=== PATIENT | male | born 1970 | race Caucasian/White ===

== ENCOUNTER 2018-09-10 11:41 | Inpatient (IN) | payer SELFPAY ==
[~2018-09-10] VITALS: Ht 170.2 cm; Wt 85.3 kg
--- NOTE | 2018-09-10 11:00 | NUR ---
RN NOTE: PATIENT ON FREQUENT NEURO CHECKS Q4HR AND ON CLOSE MONITORING WITH THE NURSES. NO CHANGE ON THE PATIENT'S NIHSS SCORE. Addendum: 09/11/18 at 0835 by RUFUS LANTIGUA RN ERROR ON TIME 09/10/18 @ 2300 NOT 1100.
--- NOTE | 2018-09-10 11:41 | NUR ---
PT BIBRA FROM HOME FOR NUMBNESS ON R SIDE; PT ON MONITOR, VSS, NAD NOTED, PENDING ER PROVIDER EVAL
--- NOTE | 2018-09-10 13:22 | NUR ---
CALLED FOR BED TELE
[2018-09-10] MEDS ORDERED: ASPIRIN 325 MG TABLET PO ONE (13:30)
[2018-09-10 13:37] LABS: BASOPHILS # (AUTO) 0.1 /CMM (0.0-0.2); BASOPHILS % (AUTO) 0.7 % (0.0-2.0); EOSINOPHILS % (AUTO) 1.1 % (0.0-6.0); HEMATOCRIT 45 % (39-51); HEMOGLOBIN 15.5 g/dL (13.5-17.5); LYMPHOCYTES # (AUTO) 2.7 /CMM (0.8-4.8); MEAN CORPUSCULAR HGB CONC 34 g/dl (31.0-36.0); MEAN CORPUSCULAR VOLUME 93 fL (80-96); MONOCYTES % (AUTO) 7.1 % (2.0-12.0); NEUTROPHILS # (AUTO) 10.1 /CMM (1.8-8.9); NEUTROPHILS % (AUTO) 72.1 % (43.0-81.0); PLATELET COUNT (AUTO) 254 /CMM (150-450); RED BLOOD CELL COUNT(AUTO) 4.85 MIL/uL (4.5-6.0)
[2018-09-10 13:58] LABS: CALCIUM, SERUM 8.9 mg/dL (8.5-10.1); CARBON DIOXIDE 28 mmol/L (21-32); CHLORIDE 99 mmol/L (98-107); CREATININE 0.8 mg/dL (0.6-1.3); GLUCOSE 254 mg/dL (74-106); SODIUM SERUM 136 mmol/L (136-145); UREA NITROGEN, BLOOD 13 mg/dL (7-18)
[2018-09-10 14:03] LABS: CHOLESTEROL 195 mg/dL (<200); HDL CHOLESTEROL 29 mg/dL (40-60); LDL 149 mg/dL (0-99); TRIGLYCERIDES 176 mg/dL (30-150)
[2018-09-10] MEDS ORDERED: ASPIRIN 325 MG TABLET ONE (14:29)
--- NOTE | 2018-09-10 14:56 | NUR ---
REPORT GIVEN TO KACIE GONZALEZ FOR SKYLA
[2018-09-10 15:02] VITALS: BP 153/105
--- NOTE | 2018-09-10 15:02 | NUR ---
RAYON WINDER NOTE: RECEIVED PATIENT FROM ER TRANSPORTED VIA STRETCHER WITH A TRANSPORTER AND [place] BROWER. PATIENT AWAKE, ALERT AND VERBALLY RESPONSIVE. DENIED ANY PAIN. NO FACIAL DROOPING. PATIENT WAS POSITIONED ON UPRIGHT POSITION ON THE BED. COMPLETE BODY ASSESSMENT WAS DONE. SKIN INTACT. INTERVIEWED THE PATIENT. HEART MONITOR WAS ATTACHED TO THE PATIENT SHOWED SR HR= 83. (L) AC IV SITE NOTED PATENT AND INTACT AND FLUSHED WITH 3CC OF NS. RECEIVED ADMISSION ORDERS FROM DR. VAZQUEZ, ORDERS, NOTED AND CARRIED OUT. MRSA NARE SCREENING WAS DONE BY THE ER NURSE AND WAS SENT TO LAB. CALL LIGHT WITHIN REACH. NEEDS ANTICIPATED.
--- NOTE | 2018-09-10 15:30 | NUR ---
RN NOTE: DR. VAZQUEZ WAS IN THE BEDSIDE AND DISCUSSED WITH THE PATIENT REGARDING THE PLAN OF CARE FOR HIM. AND MD WAS ALSO AWARE OF THE PATIENT'S HIGH BLOOD PRESSURE UPON ADMITTING HIM. MD WITH NO NEW ORDER.
--- NOTE | 2018-09-10 15:47 | NUR ---
RN NOTE: CALLED AND SPOKE WITH DR. VAZQUEZ RE: THE NURSING SWALLOW EVALUATION DONE AT THE BEDSIDE AND THE STAT EKG RESULT. PATIENT PASSED THE TEST AND DR. VAZQUEZ GAVE AN ORDER FOR A REGULAR DIET. ORDER, NOTED AND CARRIED OUT. PARI MUTUEL TICKET CASHIER SUZAN WAS ALSO INFORMED ABOUT THE STAT ECHOCARDIOGRAM ORDER. TEACHER ASST AWARE OF THE CONSULT AND WILL SEE THE PATIENT.
[2018-09-10 16:00] VITALS: BP 153/105
--- NOTE | 2018-09-10 16:00 | NUR ---
RN NOTE: PATIENT HAS BEEN GIVEN A STROKE PREVENTION TEACHING MATERIAL. DISCUSSED IT WITH THE PATIENT AND NO QUESTIONS AT THIS TIME. EMPHASIZED TO HIM THE IMPORTANCE OF STOPPING TO SMOKE AND TO HAVE A LOW FAT, LOW CHOLESTEROL DIET AND TO HAVE A HEALTHY LIFESTYLE BY DOING BRISK WALKING AT LEAST 30 MINS PER DAY.
--- NOTE | 2018-09-10 16:05 | NUR ---
RN NOTE: SPOKE WITH DR. VAZQUEZ RE: THE BLOOD SUGAR 191. MD WITH NO NEW ORDER.
[2018-09-10] MEDS: BLOOD SUGAR DIAGNOSTIC 1 EACH STRIP IN SCH ×3 (16:17→21:33)
[2018-09-10 16:57] LABS: BASOPHILS # (AUTO) 0.1 /CMM (0.0-0.2); BASOPHILS % (AUTO) 0.6 % (0.0-2.0); EOSINOPHILS % (AUTO) 1.7 % (0.0-6.0); HEMATOCRIT 45 % (39-51); HEMOGLOBIN 15.3 g/dL (13.5-17.5); LYMPHOCYTES # (AUTO) 3.6 /CMM (0.8-4.8); LYMPHOCYTES % (AUTO) 28.7 % (20.0-44.0); MEAN CORPUSCULAR HGB CONC 34 g/dl (31.0-36.0); MEAN CORPUSCULAR VOLUME 94 fL (80-96); MONOCYTES # (AUTO) 0.9 /CMM (0.1-1.30); MONOCYTES % (AUTO) 7.3 % (2.0-12.0); NEUTROPHILS # (AUTO) 7.8 /CMM (1.8-8.9); NEUTROPHILS % (AUTO) 61.7 % (43.0-81.0); PLATELET COUNT (AUTO) 252 /CMM (150-450); RED BLOOD CELL COUNT(AUTO) 4.82 MIL/uL (4.5-6.0); WHITE BLOOD COUNT (AUTO) 12.6 K/uL (4.3-11.0)
[2018-09-10 17:19] LABS: CALCIUM, SERUM 8.8 mg/dL (8.5-10.1); CARBON DIOXIDE 26 mmol/L (21-32); CHLORIDE 100 mmol/L (98-107); CREATININE 0.8 mg/dL (0.6-1.3); GLUCOSE 221 mg/dL (74-106); POTASSIUM 3.7 mmol/L (3.5-5.1); SODIUM SERUM 137 mmol/L (136-145); UREA NITROGEN, BLOOD 13 mg/dL (7-18)
[2018-09-10 17:32] LABS: ALANINE AMINOTRANSFERASE 27 U/L (12-78); ALBUMIN 3.7 g/dL (3.4-5.0); ALKALINE PHOSPHATASE 65 U/L (46-116); ASPARTATE AMINOTRANSFERASE 13 U/L (15-37); B-TYPE NATRIURETIC PEPTIDE 61 PG/ML (0-125); BILIRUBIN,TOTAL 0.3 mg/dL (0.2-1.0); TOTAL PROTEIN, SERUM 7.4 g/dL (6.4-8.2)
[2018-09-10 17:58] LABS: THYROID STIMULATING HORMONE 0.905 uIU/mL (0.358-3.74)
[2018-09-10] MEDS ORDERED: BLOOD SUGAR DIAGNOSTIC 1 EACH STRIP IN SCH (18:00)
--- NOTE | 2018-09-10 18:30 | NUR ---
RN NOTE: CALLED AND SPOKE WITH DREW FROM RADIOLOGY TO FOLLOW-UP THE MRI OF THE BRAIN ORDER, AND PER DREW THE PONY RIDE OPERATOR WAS ON THE WAY. AND THE TEST WILL BE DONE ANY TIME TONIGHT.
--- NOTE | 2018-09-10 19:00 | NUR ---
RN NOTE: PATIENT REFUSED TO EAT THE DINNER FOOD SERVED FROM THE KITCHEN AND SAID THAT HIS FAMILY MEMBER WILL GET HIM SOME FOOD FROM OUTSIDE.
--- NOTE | 2018-09-10 19:45 | NUR ---
RN NOTE: REPORT GIVEN TO PM SHIFT NURSE FOR CONTINUITY OF CARE AND TO FOLLOW-UP WITH THE MRI BRAIN WO CONTRAST. PATIENT REMAINED ON STABLE CONDITION. NO CHANGE OF CONDITION NOTED.
[2018-09-10 20:00] VITALS: BP 134/81
[2018-09-10] MEDS ORDERED: SIMVASTATIN 40 MG TABLET PO SCH (22:00)
--- NOTE | 2018-09-10 22:16 | NUR ---
RN NOTE: CALLED AND SPOKE WITH MILDRED RAMSEY DNP RE: THE PATIENT'S BRAIN MRI WO CONTRAST RESULT. PER MILDRED GARCIA, OK CONTINUE TO KEEP THE PATIENT IN TELEMETRY AND CONTINUE NEURO CHECK FOR THE PATIENT. MILDRED WAS INFORMED THAT THE PATIENT WAS NOT SEEN YET BY DR. HERNANDEZ (NEUROLOGIST), BUT PER MILDRED, ENDORSE TO AM SHIFT NURSE THAT DOCTOR DAVID NEEDED TO SEE AND READ THIS MRI BRAIN RESULT. PATIENT REMAINED QUIET WITH NO COMPLAINTS OF ANY PAIN, DENIED ANY DISCOMFORT. PATIENT REMAINED WITH NO PHYSICAL AND FUNCTIONAL CHANGES SINCE ADMISSION. WILL CONTINUE TO MONITOR THE PATIENT.
--- NOTE | 2018-09-10 23:00 | NUR ---
RN NOTE: PATIENT ON FREQUENT NEURO CHECKS Q4HR AND ON CLOSE MONITORING WITH THE NURSES. NO CHANGE ON THE PATIENT'S NIHSS SCORE.
[2018-09-11] VITALS: BP 126/80
[2018-09-11 04:00] VITALS: BP 136/85
[2018-09-11 06:29] LABS: BASOPHILS # (AUTO) 0.1 /CMM (0.0-0.2); BASOPHILS % (AUTO) 0.7 % (0.0-2.0); EOSINOPHILS % (AUTO) 2.2 % (0.0-6.0); HEMATOCRIT 45 % (39-51); HEMOGLOBIN 15.2 g/dL (13.5-17.5); LYMPHOCYTES # (AUTO) 2.7 /CMM (0.8-4.8); LYMPHOCYTES % (AUTO) 23.3 % (20.0-44.0); MEAN CORPUSCULAR HGB CONC 34 g/dl (31.0-36.0); MEAN CORPUSCULAR VOLUME 93 fL (80-96); MONOCYTES % (AUTO) 8.4 % (2.0-12.0); NEUTROPHILS # (AUTO) 7.5 /CMM (1.8-8.9); NEUTROPHILS % (AUTO) 65.4 % (43.0-81.0); PLATELET COUNT (AUTO) 255 /CMM (150-450); RED BLOOD CELL COUNT(AUTO) 4.82 MIL/uL (4.5-6.0); WHITE BLOOD COUNT (AUTO) 11.4 K/uL (4.3-11.0)
[2018-09-11 06:42] LABS: CALCIUM, SERUM 8.5 mg/dL (8.5-10.1); CREATININE 0.8 mg/dL (0.6-1.3); POTASSIUM 4.3 mmol/L (3.5-5.1)
[2018-09-11 07:11] LABS: APPEARANCE,URINE SL CLOUDY (CLEAR); BILIRUBIN,URINE NEGATIVE (NEGATIVE); BLOOD, URINE TRACE-INTA Ery/uL (NEGATIVE); COLOR,URINE YELLOW (YELLOW); KETONES,URINE NEGATIVE (NEGATIVE); LEUKOCYTE ESTERASE ,URINE NEGATIVE (NEGATIVE); NITRITE, URINE NEGATIVE (NEGATIVE); PH,URINE 5.5 (5.0-8.0); PROTEIN,URINE NEGATIVE (NEGATIVE); UGLUCOSE 1+ mg/dL (NEGATIVE); UROBILINOGEN,URINE 0.2 EU/dL (0.2)
--- NOTE | 2018-09-11 07:31 | NUR ---
RN CLOSING NOTE: PATIENT REMAINED ON STABLE CONDITION. NO CHANGES ON THE CURRENT NIHSS SCORE. NO UNUSUAL CHANGES NOTED. REPORT GIVEN TO AM SHIFT NURSE FOR CONTINUITY OF CARE.
[2018-09-11 08:00] VITALS: BP 129/89
[2018-09-11 08:02] LABS: BACTERIA,URINE None seen /HPF (None Seen); RBC,URINE 0-2 /HPF (0-2)
[2018-09-11 08:03] LABS: SQUAMOUS EPITHELIAL CELL,UR Few /HPF (None Seen)
[2018-09-11] MEDS: BLOOD SUGAR DIAGNOSTIC 1 EACH STRIP IN SCH ×2 (08:06→11:56)
--- NOTE | 2018-09-11 11:10 | NUR ---
RN NOTE PT WANTS TO SMOKE, RISKS EXPLAINED AND ENCOURAGED TO STOP SMOKING, BUT PT STILL WANTS TO SMOKE. WANTS TO GET OUTSIDE AND COME BACK. DIET TEACHING IS DONE WELL TO CONTROL BLOOD SUGAR. PT VERBALIZED UNDERSTANDING.
[2018-09-11] MEDS: ASPIRIN 81 MG TAB.CHEW PO SCH (11:18)
[2018-09-11] MEDS ORDERED: DEXTROSE 50%-WATER 50 ML DISP.SYRIN IV PRN (11:30)
[2018-09-11] MEDS: METFORMIN 500 MG TABLET PO SCH ×2 (11:54→17:00)
[2018-09-11] MEDS: BLOOD SUGAR DIAGNOSTIC 1 EACH STRIP VI SCH ×3 (11:59→22:21)
[2018-09-11 12:00] VITALS: BP 133/89
[2018-09-11] MEDS: INSULIN REGULAR, HUMAN 100 UNIT/ML 3 ML VIAL SQ PRN ×2 (12:07→18:12)
[2018-09-11] MEDS ORDERED: CT SWABBABLE VALVE TRANS SET 1 EA INFUS.SET MC ONE (15:02)
[2018-09-11] MEDS ORDERED: IOHEXOL-350 100 ML VIAL IV ONE (15:02)
[2018-09-11 16:00] VITALS: BP 133/75
--- NOTE | 2018-09-11 16:05 | NUR ---
RN NOTE RECEIVED A CALL FROM RADIOLOGIST REPORTING ME THAT PT'S CTA HEAD AND NECK RESULT, THAT PT HAD LEFT INTERNAL CAROTID ARTERY OCCLUDED. LEFT VOICEMAIL FOR DR HERNANDEZ AND ATTEMPTED TO REACH DR VAZQUEZ, NO RESPONSE YET. WILL FOLLOW UP AGAIN.
--- NOTE | 2018-09-11 16:30 | NUR ---
RN NOTE SPOKE WITH DR VAZQUEZ ABOUT THE RESULT OF CTA NECK AND BRAIN, ASKED HIM TO NOTIFY DR HERNANDEZ WELL. NO RESPONSE FROM DR HERNANDEZ. METFORMIN DOSE HELD DUE TO IV CONTRAST ADMINISTRATION. BLOOD GLUCOSE IS CHECKED AND COVERED WITH INSULIN.
[2018-09-11 20:00] VITALS: BP 142/88
[2018-09-11] MEDS: ATORVASTATIN 40 MG TABLET PO SCH (22:21)
[2018-09-11] MEDS: *INSULIN REGULAR(HUMULIN R)HUM 100 UNIT/ML VIAL SQ PRN (22:30)
[2018-09-12] VITALS (7 sets, daily range): BP systolic 112–145; BP diastolic 69–125
--- NOTE | 2018-09-12 08:00 | NUR ---
RN NOTES RECEIVED PATIENT SITTING IN BED, ALERT AND ORIENTED, VERBALLY RESPONSIVE AND ABLE TO MAKE NEEDS KNOWN. ON ROOM AIR. BREATHING EVEN AND UNLABORED. SATING AT 97%. DENIES ANY PAIN. NO FACIAL DROOPING NOTED. SMILE SYMMETRIC. MUSCLE STRENGTH 5/5 TO ALL EXTREMITIES,NO DRIFTING ON ASSESSMENT. SR WITH HR 93 ON THE MONITOR. (L) AC IV SITE G 18 NOTED PATENT AND INTACT, FLUSHES WELL. RECEIVED ADMISSION ORDERS FROM DR. VAZQUEZ, ORDERS, NOTED AND CARRIED OUT. SAFETY MEASURES OBSERVED AND MAINTAINED. CALL LIGHT PLACED WITHIN REACH. WILL CONTINUE TO MONITOR PATIENT.
[2018-09-12] MEDS: METFORMIN 500 MG TABLET PO SCH ×2 (08:39→17:00)
[2018-09-12] MEDS: BLOOD SUGAR DIAGNOSTIC 1 EACH STRIP VI SCH ×4 (08:39→21:36)
[2018-09-12] MEDS: ASPIRIN 81 MG TAB.CHEW PO SCH (08:39)
[2018-09-12] MEDS: INSULIN REGULAR, HUMAN 100 UNIT/ML 3 ML VIAL SQ PRN ×2 (08:40→12:39)
--- NOTE | 2018-09-12 09:00 | NUR ---
RN NOTES METFORMIN NOT GIVEN DUE PER MD ORDER. PATIENT S/P CTA OF THE CAROTID YESTERDAY.
[2018-09-12] MEDS: glipiZIDE 5 MG TABLET PO SCH ×2 (12:37→17:30)
--- NOTE | 2018-09-12 17:00 | NUR ---
RN NOTES METFORMIN NOT GIVEN DUE PER MD ORDER. PATIENT S/P CTA OF THE CAROTID YESTERDAY.
--- NOTE | 2018-09-12 19:30 | NUR ---
RN NOTES ENDORSED PATIENT FOR CONTINUITY OF CARE. PT IN STABLE CONDITION. NO ACUTE CHANGES THROUGHOUT SHIFT. NO ALTERED MENTAL STATUS OR NEUROLOGIC DEFICITS NOTED WITHIN THE SHIFT. SAFETY MEASURES AND ASPIRATION PRECAUTION OBSERVED AT ALL TIMES. ALL NEEDS ANTICIPATED.
[2018-09-12] MEDS: ATORVASTATIN 40 MG TABLET PO SCH (21:40)
[2018-09-12] MEDS: *INSULIN REGULAR(HUMULIN R)HUM 100 UNIT/ML VIAL SQ PRN (21:41)
[2018-09-13] VITALS: BP 142/98
[2018-09-13 04:00] VITALS: BP 140/93
--- NOTE | 2018-09-13 07:42 | NUR ---
BALANCE SCREWHEAD POLISHER NOTES RECEIVED PATIENT , ALERT AND ORIENTED, VERBALLY RESPONSIVE AND ABLE TO MAKE NEEDS KNOWN. ON ROOM AIR. BREATHING EVEN AND UNLABORED. . DENIES ANY PAIN. NO FACIAL DROOPING NOTED. SMILE SYMMETRIC. ,NO DRIFTING ON ASSESSMENT. SR WITH HR 91 ON THE MONITOR. (L) AC IV SITE G 18 NOTED PATENT AND INTACT, FLUSHES WELL. SAFETY MEASURES OBSERVED AND MAINTAINED. CALL LIGHT PLACED WITHIN REACH. WILL CONTINUE TO MONITOR BED IN LOWEST AND LOCKED POSITION , PLAN OF CARE DISCUSSED WITH PATIENT
[2018-09-13 08:00] VITALS: BP 150/93
[2018-09-13] MEDS: glipiZIDE 5 MG TABLET PO SCH ×2 (08:13→16:32)
[2018-09-13] MEDS: INSULIN REGULAR, HUMAN 100 UNIT/ML 3 ML VIAL SQ PRN ×2 (08:15→12:18)
[2018-09-13] MEDS: BLOOD SUGAR DIAGNOSTIC 1 EACH STRIP VI SCH ×3 (08:17→17:43)
[2018-09-13] MEDS: ASPIRIN 81 MG TAB.CHEW PO SCH (08:19)
[2018-09-13] MEDS: METFORMIN 500 MG TABLET PO SCH ×2 (08:21→16:33)
--- NOTE | 2018-09-13 09:50 | NUR ---
ROAD REPAIRER NOTE ST AT BEDSIDE. WILL F\U
[2018-09-13 11:11] LABS: *ANTITHROMBIN III AG 119 % (72-124); *DILUTE PROTHROMBIN TIME (dPT) 44.1 sec (0.0-55.0); *PTT-LA 37.7 sec (0.0-51.9); *THROMBIN TIME 15.7 sec (0.0-23.0); *dPT CONFIRM RATIO 1.25 Ratio (0.00-1.40); *dRVVT 52.4 sec (0.0-47.0); PROTEIN C ACTIVITY 132 % (73-180)
--- NOTE | 2018-09-13 11:18 | NUR ---
telesales manager william irizarry rn briar wood sorter neurologist at bedside no new order given at this time. will f\u
[2018-09-13 12:00] VITALS: BP 137/97
--- NOTE | 2018-09-13 12:00 | NUR ---
telecommunications technician note able to ambulate well , family at bedside ,all needs attended ,will cont to monitor
[2018-09-13 13:09] LABS: *CARD ANTI-CARDIOLIPIN AB IgG <9 GPL U/mL (0-14); *CARD ANTI-CARDIOLIPIN AB IgM <9 MPL U/mL (0-12)
--- NOTE | 2018-09-13 15:25 | NUR ---
CHAIN TESTING MACHINE OPERATOR NOTE DR MCDANIEL AT BEDSIDE, NO NEW ORDER GIVEN AT THIS TIME
[2018-09-13 16:00] VITALS: BP 144/93
[2018-09-13] MEDS ORDERED: METF-440 PO (16:43)
[2018-09-13] MEDS ORDERED: ASPI-1169 PO (16:43)
[2018-09-13] MEDS ORDERED: GLIP5TAB13 PO (16:43)
[2018-09-13] MEDS ORDERED: ATOR40TA PO (16:43)
--- NOTE | 2018-09-13 18:00 | NUR ---
PULPWOOD CONTRACTOR NOTE PER ELINOR RN TECHNICAL SPECIALIST CYTOLOGY OK TO DISCHARGE HOME , D\C INSTRUCTION GIVEN ,INDERSTOOD , HL REMOVED NO S\S INFECTION NOTED ,STROKE EDUCATING AND TEACHING DONE UNDERSTOOD, PX GIVEN ,EXPLAINED HOW TO TAKE NEW PX AND HOME MEDS AND POSSIBLE SIDE EFFECTS , BELONGING SIGNED,AWAITING FOR RIDE TO GO HOME
--- NOTE | 2018-09-13 19:14 | NUR ---
telecommunications manager note friend at bedside rewed heme meds and new px , taken to lobby on w\c , went home with stable condition
[2018-09-14 03:11] LABS: *INTERPRETATION Comment: (.); *dRVVT MIX 42.2 sec (0.0-47.0)
== END 2018-09-13 19:15 | disposition home or self-care (01) | DRG 64 ==
LOC: ER 11:42 → TELE1 14:11
PROVIDERS: ADMIT Internal Medicine; ATTEND Registered Nurse
DX: I63.233 Cerebral infarction due to unspecified occlusion or stenosis of bilateral carotid arteries (principal); I77.71 Dissection of carotid artery; E11.9 Type 2 diabetes mellitus without complications; Z86.73 Personal history of transient ischemic attack (TIA), and cerebral infarction without residual deficits; E78.5 Hyperlipidemia, unspecified; F17.200 Nicotine dependence, unspecified, uncomplicated; D72.828 Other elevated white blood cell count
CPT/HCPCS: 36415; 70450-TC; 70496-TC; 70498-TC; 70551-TC; 71045-TC; 80048-TC; 80053-TC; 80061-TC; 80305; 81000-TC; 82962-TC; 83880; 84443-TC; 84484-TC; 85025-TC; 85300; 85301; 85303; 85613; 85652-TC; 85670; 85705; 85730-TC; 85732; 86147; 87081-TC; 87806; 92507-TC; 92521; 92611-TC; 93307-TC; 93880-TC; 97530-TC; 97535-TC; G0378; J1815; Q9967

== ENCOUNTER 2019-03-09 13:40 | Emergency (ER) | payer MEDICAID ==
[~2019-03-09] VITALS: Ht 172.7 cm; Wt 86.6 kg
[~2019-03-09 13:40] MED LIST: ASPI-1169 PO; ATOR40TA PO; GLIP5TAB13 PO; METF-440 PO
--- NOTE | 2019-03-09 13:47 | NUR ---
PT BIB FROM HOME, C/O CHEST PAIN X 4 DAYS PRESSURE LIKE NON RADIATING.
--- NOTE | 2019-03-09 13:52 | NUR ---
SEEN AND EXAMINED BY DEIDRA GORMAN.
--- NOTE | 2019-03-09 13:55 | NUR ---
IV LINE ESTABLISHED, BLOOD DRAWNED AND SENT TO LAB.
[2019-03-09] MEDS ORDERED: ASPIRIN 81 MG TAB.CHEW ONE (13:58)
[2019-03-09 14:00] LABS: BASOPHILS # (AUTO) 0.1 /CMM (0.0-0.2); BASOPHILS % (AUTO) 0.4 % (0.0-2.0); EOSINOPHILS % (AUTO) 1.3 % (0.0-6.0); HEMATOCRIT 42 % (39-51); HEMOGLOBIN 14.4 g/dL (13.5-17.5); LYMPHOCYTES # (AUTO) 2.1 /CMM (0.8-4.8); LYMPHOCYTES % (AUTO) 14.5 % (20.0-44.0); MEAN CORPUSCULAR HGB CONC 34 g/dl (31.0-36.0); MEAN CORPUSCULAR VOLUME 95 fL (80-96); MONOCYTES # (AUTO) 0.9 /CMM (0.1-1.30); MONOCYTES % (AUTO) 6.4 % (2.0-12.0); NEUTROPHILS % (AUTO) 77.4 % (43.0-81.0); PLATELET COUNT (AUTO) 277 /CMM (150-450); RED BLOOD CELL COUNT(AUTO) 4.48 MIL/uL (4.5-6.0); WHITE BLOOD COUNT (AUTO) 14.2 K/uL (4.3-11.0)
[2019-03-09] MEDS ORDERED: ASPIRIN 81 MG TAB.CHEW PO ONE (14:00)
--- NOTE | 2019-03-09 14:10 | NUR ---
MINE GEOLOGIST AT BEDSIDE FOR XRAY.
[2019-03-09 14:19] LABS: CALCIUM, SERUM 8.8 mg/dL (8.5-10.1); CREATININE 0.9 mg/dL (0.6-1.3); POTASSIUM 4.1 mmol/L (3.5-5.1)
[2019-03-09] MEDS ORDERED: METOPROLOL TARTRATE INJ 5 MG/5 ML AMPUL IV ONE (14:30)
[2019-03-09] MEDS ORDERED: NITROGLYCERIN PACKET 1 GM PACKET TD ONE (14:30)
[2019-03-09] MEDS ORDERED: ONDANSETRON HCL/PF 4 MG/2 ML VIAL IV ONE (14:30)
[2019-03-09] MEDS ORDERED: MORPHINE SULFATE INJ 10 MG/ML DISP.SYRIN IV ONE (14:30)
[2019-03-09] MEDS ORDERED: NTG 50 MG/D5W250 ML BOTTL 250 ML IV ONE ×2 (14:31→15:00)
--- NOTE | 2019-03-09 14:32 | NUR ---
CALLED [facility] [phone] [facility] [phone] [facility] ON CCT FAXED FACESHEEET [phone] GOOD NUMBER IS [phone] RUTH ANN. WILL CALL US BACK IN 10 MINS. CARDIO IS [facility]?
--- NOTE | 2019-03-09 14:38 | NUR ---
NTG DRIP 50MG STARTED. TITRATE TO EFFECT.
[2019-03-09] MEDS ORDERED: MORPHINE SULFATE INJ 4 MG/ML DISP.SYRIN ONE (14:39)
[2019-03-09] MEDS ORDERED: ONDANSETRON HCL/PF 4 MG/2 ML VIAL ONE (14:39)
[2019-03-09 14:43] LABS: BILIRUBIN,DIRECT 0.1 mg/dL (0.0-0.2); BILIRUBIN,TOTAL 0.4 mg/dL (0.2-1.0)
[2019-03-09 14:44] LABS: ALBUMIN 3.9 g/dL (3.4-5.0); TOTAL PROTEIN, SERUM 7.8 g/dL (6.4-8.2)
--- NOTE | 2019-03-09 15:48 | NUR ---
REPORT GIVEN TO CCT NURSE FOR PT TRANSFER TO [facility].
--- NOTE | 2019-03-09 15:48 | NUR ---
WITH ONGOING NTG DRIP AT 3MCG/HR TITRATE TO EFFECT.
[2019-03-09 15:53] VITALS: BP 135/101
== END 2019-03-09 15:56 | disposition short-term general hospital (02) ==
LOC: ER 13:43
DX: I21.3 ST elevation (STEMI) myocardial infarction of unspecified site (principal); E11.9 Type 2 diabetes mellitus without complications; E78.5 Hyperlipidemia, unspecified; I10 Essential (primary) hypertension; I65.22 Occlusion and stenosis of left carotid artery; Z86.73 Personal history of transient ischemic attack (TIA), and cerebral infarction without residual deficits; Z60.2 Problems related to living alone; Z79.82 Long term (current) use of aspirin; Z72.0 Tobacco use
CPT/HCPCS: 36415; 71045; 80048; 80076; 83880; 84484; 85025; 87081; 93005 ×2; 96365; 96375; 99291; 99406; J2270; J2405; J3490

== ENCOUNTER 2022-09-11 14:08 | Emergency (ER) | payer MEDICAID ==
[~2022-09-11] VITALS: Ht 175.3 cm; Wt 86.2 kg
--- NOTE | 2022-09-11 14:26 | NUR ---
RECEIVED PT 51 YRS MALE CAME BY AMMY C/O HIP PAIN FALL DONE
[2022-09-11] MEDS ORDERED: HYDROCODONE/APAP 5/325MG TABLET PO ONE (14:30)
--- NOTE | 2022-09-11 14:45 | NUR ---
X RAY DONE AT BED SIDE
[2022-09-11] MEDS ORDERED: HYDROCODONE/APAP 5/325MG TABLET ONE (14:53)
[2022-09-11] MEDS ORDERED: IBUPROFEN 400 MG TABLET PO ONE (15:30)
[2022-09-11] MEDS ORDERED: IBUPROFEN 400 MG TABLET ONE (16:17)
--- NOTE | 2022-09-11 16:30 | NUR ---
TO CT SCAN
[2022-09-11 18:16] LABS: BASOPHILS # (AUTO) 0.1 K/uL (0.0-0.2); BASOPHILS % (AUTO) 0.5 % (0.0-2.0); EOSINOPHILS % (AUTO) 1.1 % (0.0-6.0); HEMATOCRIT 49 % (39-51); HEMOGLOBIN 15.9 g/dL (13.5-17.5); LYMPHOCYTES # (AUTO) 1.8 K/uL (0.8-4.8); LYMPHOCYTES % (AUTO) 12.7 % (20.0-44.0); MEAN CORPUSCULAR HGB CONC 32 g/dl (31.0-36.0); MEAN CORPUSCULAR VOLUME 92 fL (80-96); MONOCYTES # (AUTO) 0.8 K/uL (0.1-1.30); MONOCYTES % (AUTO) 5.7 % (2.0-12.0); NEUTROPHILS # (AUTO) 11.3 K/uL (1.8-8.9); PLATELET COUNT (AUTO) 272 K/uL (150-450); RED BLOOD CELL COUNT(AUTO) 5.34 MIL/uL (4.5-6.0); WHITE BLOOD COUNT (AUTO) 14.1 K/uL (4.3-11.0)
[2022-09-11 18:33] LABS: CALCIUM, SERUM 9.3 mg/dL (8.5-10.1); CREATININE 1.1 mg/dL (0.6-1.3); POTASSIUM 3.8 mmol/L (3.5-5.1)
--- NOTE | 2022-09-11 18:34 | NUR ---
CLINICAL REPORT GIVEN TO JOHNATH[facility] [phone] [facility] TERMITE CONTROL REPRESENTATIVE ,
--- NOTE | 2022-09-11 18:40 | NUR ---
covid swab and UA SENT TO LAB
--- NOTE | 2022-09-11 19:01 | NUR ---
[facility] [phone] REQUESTING CLINICALS FAXED TO [phone]
--- NOTE | 2022-09-11 19:23 | NUR ---
HAND OFF ADAM HESTER
--- NOTE | 2022-09-11 19:30 | NUR ---
PATIENT IS AAOX4. ABLE TO MAKE NEEDS KNOWN. FOR ADMISSION D/T FRACTURE OF RIGHT HIP. WAITING FOR [facility]'S DECISION WHETHER WE CAN KEEP THE PATIENT. PATIENT IS ATTACHED TO MONITOR. VITALS CHECKED. PAIN SCALE 1/10
--- NOTE | 2022-09-11 20:59 | NUR ---
PATIENT COMPLAINING OF RIGHT HIP PAIN SCALE OF 5/10. ASKING FOR ANOTHER DOSE OF MOTRIN.
--- NOTE | 2022-09-11 20:59 | NUR ---
PT IS ASKING IF HE CAN EAT. PER DR TAVAREZ, NPO AT THE MOMENT
[2022-09-11] MEDS ORDERED: MORPHINE SULFATE INJ 2 MG/ML DISP.SYRIN ONE (21:18)
[2022-09-11] MEDS ORDERED: MORPHINE SULFATE INJ 2 MG/ML DISP.SYRIN IV ONE (21:30)
--- NOTE | 2022-09-11 21:50 | NUR ---
PATIENT IS ASKING FOR WATER/ICE OR ANYTHING TO DRINK. EXPLAINED TO PATIENT THAT HE IS NPO PER DR TAVAREZ. PER MD, WE ARE STILL WAITING FOR THE PLAN FOR THE PATIENT BY INSURANCE WHETHER WE KEEP PATIENT IN [facility] OR TRANSFER TO OTHER HOSPITAL. SO TO BE SAFE, DR TAVAREZ WANTS PATIENT KEEP PT NPO.
--- NOTE | 2022-09-12 01:29 | NUR ---
PER NOVEMBER, UTILITY MAINTENANCE WORKER, PT IS GOING TO [facility] AND WILL HAVE THE BED AFTER SHIFT CHANGE.
--- NOTE | 2022-09-12 02:04 | NUR ---
NEEDS ATTENDED. PATIENT IS ASLEEP
[2022-09-12] MEDS ORDERED: MORPHINE SULFATE INJ 2 MG/ML DISP.SYRIN ONE (04:16)
[2022-09-12] MEDS ORDERED: ONDANSETRON HCL/PF 4 MG/2 ML VIAL ONE (04:16)
--- NOTE | 2022-09-12 04:22 | NUR ---
NEEDS ATTENDED. PATIENT IS COMPLAINING OF PAIN ON RIGHT HIP. MD MADE AWARE.
[2022-09-12] MEDS ORDERED: MORPHINE SULFATE INJ 2 MG/ML DISP.SYRIN IV ONE ×2 (04:30→09:00)
[2022-09-12] MEDS ORDERED: ONDANSETRON HCL/PF 4 MG/2 ML VIAL IV ONE (04:30)
--- NOTE | 2022-09-12 07:19 | NUR ---
REPORT GIVEN TO KACIE BOLDEN
--- NOTE | 2022-09-12 07:38 | NUR ---
CALLED [facility] [phone] LEFT VM
--- NOTE | 2022-09-12 07:52 | NUR ---
REceived pt from [facility] AND ALERT NO SOB
--- NOTE | 2022-09-12 08:05 | NUR ---
CALLED [facility] [phone] DR. CAAL IS CORN DETASSELER.
--- NOTE | 2022-09-12 08:11 | NUR ---
MAY CM CALLED PT ACCEPTED TO [id number] PLEASE CALL [phone] FOR REPORT TO KACIE KENDRICK. JAISON WILL CALL WITH TRANSPORT DETAILS.
--- NOTE | 2022-09-12 08:45 | NUR ---
HAND OFF TO SHY[facility] NICHOL[id number] IN [facility] ([phone] STABLE VS AWAKE AND ALERT
[2022-09-12] MEDS ORDERED: MORPHINE SULFATE INJ 4 MG/ML DISP.SYRIN ONE (09:08)
[2022-09-12 09:25] VITALS: BP 120/67
--- NOTE | 2022-09-12 09:26 | NUR ---
TO [facility]
== END 2022-09-12 10:00 | disposition short-term general hospital (02) ==
LOC: ER 14:10
DX: S72.001A Fracture of unspecified part of neck of right femur, initial encounter for closed fracture (principal); S50.311A Abrasion of right elbow, initial encounter; V48.7XXA Person on outside of car injured in noncollision transport accident in traffic accident, initial encounter; Y92.410 Unspecified street and highway as the place of occurrence of the external cause; I10 Essential (primary) hypertension; E11.9 Type 2 diabetes mellitus without complications; Z20.822 Contact with and (suspected) exposure to COVID-19; Z86.73 Personal history of transient ischemic attack (TIA), and cerebral infarction without residual deficits; Z82.49 Family history of ischemic heart disease and other diseases of the circulatory system; Z79.82 Long term (current) use of aspirin; Z79.84 Long term (current) use of oral hypoglycemic drugs; Z79.899 Other long term (current) drug therapy
CPT/HCPCS: 99285; 96374; 73700; 87426; 73552; 73502; 85025; 80048; 36415; 85730; 96375; 96376; 82962; J2270 ×3; C9803; J2405